=== PATIENT | female | born 1990 | race Caucasian/White ===

== ENCOUNTER 2019-10-18 19:58 | Emergency (ER) | payer MEDICAID ==
[~2019-10-18] VITALS: Ht 167.6 cm; Wt 76.2 kg
[2019-10-18 20:15] VITALS: BP_SYST 114
[2019-10-18 21:20] VITALS: BP_SYST 114
== END 2019-10-18 21:20 | disposition home or self-care (01) ==
LOC: SED 19:58
DX: R05 Cough (principal)
CPT/HCPCS: 99283

== ENCOUNTER 2019-12-16 17:15 | Emergency (ER) | payer MEDICAID ==
[~2019-12-16] VITALS: Ht 170.2 cm; Wt 72.6 kg
[2019-12-16 17:29] VITALS: BP_SYST 126
[2019-12-16] MEDS ORDERED: DIPH-TET-PERTUS Vaccine 0.5 ML VIAL (ADACEL) I.M. ONE (20:00)
--- NOTE | 2019-12-16 20:00 | NUR ---
PT TO ROOM
--- NOTE | 2019-12-16 20:15 | NUR ---
SOAKES PTS LEFT HAND IN BETADINE AND STERILE WATER SOLUTION.
--- NOTE | 2019-12-16 20:31 | NUR ---
DR LOYD AT BEDSIDE PERFORMING GLUEING
[2019-12-16 20:40] VITALS: BP_SYST 126
--- NOTE | 2019-12-16 22:48 | NUR ---
Patient given written and verbal discharge instructions and verbalizes understanding. ER MD discussed with patient the results and treatment provided. Patient in stable condition. ID arm band removed. Patient educated on pain management and to follow up with PMD. Pain Scale . Opportunity for questions provided and answered. Medication side effect fact sheet provided.
== END 2019-12-16 22:48 | disposition home or self-care (01) ==
LOC: SED 17:15
DX: S61.213A Laceration without foreign body of left middle finger without damage to nail, initial encounter (principal); W26.8XXA Contact with other sharp object(s), not elsewhere classified, initial encounter; Y93.89 Activity, other specified; Y92.89 Other specified places as the place of occurrence of the external cause; Y99.8 Other external cause status
CPT/HCPCS: 90715; 99283